=== PATIENT | male | born 1950 | race African-American/Black ===

== ENCOUNTER 2022-07-29 21:47 | Emergency (ER) | payer OTHER ==
[~2022-07-29] VITALS: Ht 175.3 cm; Wt 90.0 kg
[2022-07-29 23:19] LABS: BASOPHILS % 0.5 % (0.0-2.0); EOSINOPHILS % 0.9 % (0.0-5.0); HEMATOCRIT. 45.8 % (42.0-52.0); HEMOGLOBIN. 15.2 g/dL (14.0-18.0); LYMPHOCYTES % 15.4 % (20.0-50.0); MEAN CORPUSCULAR HEMOGLOBIN 29.8 pg (28.0-32.0); MEAN CORPUSCULAR VOLUME 89.8 fL (80.0-94.0); MEAN PLATELET VOLUME 9.3 fl (7.4-10.4); MONOCYTES % 4.2 % (2.0-8.0); PLATELET 102 x1000/uL (130-400); RED CELL DISTRIBUTION WIDTH 14.2 % (11.6-14.6)
[2022-07-29 23:27] LABS: CHLORIDE 110 mEq/L (98-107)
[2022-07-29 23:42] LABS: ETHANOL BLOOD < 10 mg/dL
[2022-07-30 08:52] VITALS: BP 136/64
== END 2022-07-30 09:15 | disposition short-term general hospital (02) ==
LOC: ER 21:47 → CANBEDREQ 07-30 07:17 → ER 07-30 09:15
DX: R41.82 Altered mental status, unspecified (principal); E11.9 Type 2 diabetes mellitus without complications; I10 Essential (primary) hypertension; Z20.822 Contact with and (suspected) exposure to COVID-19
CPT/HCPCS: 36415; 70450; 71045; 80053; 80320; 82140; 83605; 84443; 84484; 85025; 87040; 87426; 93005; 99285; C1893; C9803; G0480